=== PATIENT | female | born 1945 | race Caucasian/White ===

== ENCOUNTER 2021-03-21 09:31 | Day surgery (SDC) | payer MEDICARE, OTHER ==
[2021-03-21] MEDS ORDERED: Depo-Medrol 40 MG/ML IM ONE (09:32)
[2021-03-21] MEDS ORDERED: BUPIVACAINE 0.5% VIAL IJ ONE (09:32)
[2021-03-21] MEDS ORDERED: DIPRIVAN 200 MG/20 ML IV ONE (11:30)
[2021-03-21] MEDS ORDERED: Lactated Ringers 1,000 ML IV ONE (12:18)
--- NOTE | 2021-03-21 12:20 | XRAY ---
Indication: Bilateral SI joint injection. Intraoperative fluoroscopy provided for 26 seconds. 4 digital spot image submitted for interpretation demonstrates posterior needle tip projecting over the inferior left and right SI joint. Correlate with intraoperative findings/report.
--- NOTE | 2021-03-21 12:33 | XRAY ---
26 seconds fluoroscopy time in surgery for bilateral injections of the SI joints.
== END 2021-03-21 11:57 | disposition home or self-care (01) ==
LOC: SDC-PAIN 09:31
PROVIDERS: ATTEND Psychiatry & Neurology Pain Medicine
DX: M46.1 Sacroiliitis, not elsewhere classified (principal); Z79.899 Other long term (current) drug therapy
CPT/HCPCS: 27096; 72202; 77002; G0260; 99100; J1030; J2704

== ENCOUNTER 2021-04-18 11:39 | Day surgery (SDC) | payer MEDICARE, OTHER ==
[2021-04-18] MEDS ORDERED: Depo-Medrol 40 MG/ML IM ONE (11:40)
[2021-04-18] MEDS ORDERED: BUPIVACAINE 0.5% VIAL IJ ONE (11:40)
[2021-04-18] MEDS ORDERED: DIPRIVAN 200 MG/20 ML IV ONE (14:16)
[2021-04-18] MEDS ORDERED: Lactated Ringers 1,000 ML IV ONE (14:56)
--- NOTE | 2021-04-18 14:58 | XRAY ---
Indication: Right knee injection. Intraoperative fluoroscopy provided for 11 seconds. Single digital spot image submitted for interpretation demonstrates needle tip projecting over the right femur intercondylar notch. Small amount of contrast injected for needle tip placement. Correlate with intraoperative findings/report.
--- NOTE | 2021-04-18 17:05 | XRAY ---
11 seconds fluoroscopy time in surgery for intra-articular injection of the right knee.
== END 2021-04-18 14:40 | disposition home or self-care (01) ==
LOC: SDC-PAIN 11:39
PROVIDERS: ATTEND Psychiatry & Neurology Pain Medicine
DX: M17.11 Unilateral primary osteoarthritis, right knee (principal); Z79.899 Other long term (current) drug therapy
CPT/HCPCS: 20610; 73560; 77002; J1030; J2704; Q9966

== ENCOUNTER 2021-05-09 13:59 | Day surgery (SDC) | payer MEDICARE, OTHER ==
[2021-05-09] MEDS ORDERED: Depo-Medrol 40 MG/ML IM ONE (14:00)
[2021-05-09] MEDS ORDERED: BUPIVACAINE 0.5% VIAL IJ ONE (14:00)
[2021-05-09] MEDS ORDERED: Lactated Ringers 1,000 ML IV ONE (17:16)
[2021-05-09] MEDS ORDERED: DIPRIVAN 200 MG/20 ML IV ONE (17:28)
--- NOTE | 2021-05-09 22:20 | XRAY ---
Indication: Bilateral L4-S1 MBB. Intraoperative fluoroscopy provided for 14 seconds. Single digital spot image submitted for interpretation demonstrates posterior needle tips projecting over the expected left and right L4-S1 nerve roots. Correlate with intraoperative findings/report. Incidental L3-L4 fusion hardware.
--- NOTE | 2021-05-10 08:52 | XRAY ---
14 seconds of fluoroscopy was used in surgery for a bilateral L4-S1 MBB.
== END 2021-05-09 18:00 | disposition home or self-care (01) ==
LOC: SDC-PAIN 13:59
PROVIDERS: ATTEND Psychiatry & Neurology Pain Medicine
DX: M47.816 Spondylosis without myelopathy or radiculopathy, lumbar region (principal); Z79.899 Other long term (current) drug therapy
CPT/HCPCS: 64493; 64494; 72020; 77002; J1030; J2704

== ENCOUNTER 2021-06-13 12:48 | Day surgery (SDC) | payer MEDICARE, OTHER ==
[2021-06-13] MEDS ORDERED: Depo-Medrol 40 MG/ML IM ONE (12:49)
[2021-06-13] MEDS ORDERED: BUPIVACAINE 0.5% VIAL IJ ONE (12:49)
[2021-06-13] MEDS ORDERED: Lactated Ringers 1,000 ML IV ONE (14:30)
[2021-06-13] MEDS ORDERED: DIPRIVAN 200 MG/20 ML IV ONE (15:11)
--- NOTE | 2021-06-13 17:20 | XRAY ---
Indication: Bilateral L4-S1 MBB. Intraoperative fluoroscopy provided for 12 seconds. Single digital spot image submitted for interpretation demonstrates posterior needle tips projecting over the expected left and right L4-S1 nerve roots. Correlate with intraoperative findings/report. Incidental L3-L4 fusion hardware.
--- NOTE | 2021-06-13 17:32 | XRAY ---
12 seconds fluoroscopy time in surgery for bilateral L4-S1 MBB.
== END 2021-06-13 15:38 | disposition home or self-care (01) ==
LOC: SDC-PAIN 12:48
PROVIDERS: ATTEND Psychiatry & Neurology Pain Medicine
DX: M47.816 Spondylosis without myelopathy or radiculopathy, lumbar region (principal); Z79.899 Other long term (current) drug therapy
CPT/HCPCS: 64493; 64494; 72020; 77002; J1030; J2704